=== PATIENT | male | born 1985 | race Caucasian/White ===

== ENCOUNTER 2021-04-01 02:55 | Emergency (ER) | payer OTHER ==
--- NOTE | 2021-04-01 02:56 | ED ---
Overdose HPI - General Stated Complaint: Overdose Time Seen by Provider: 04/01/21 02:56 Source: RN notes reviewed, old records reviewed Limitations: no limitations - History of Present Illness Initial Comments: This is a 35-year-old male to the ER for evaluation today. Patient presents today is evaluation by EMS for overdose. Patient had expected opiate overdose low he refuses to admit this. Patient has denial of any other drug or alcohol abuse. Patient prefer discharged home MD Complaint: accidental overdose -: hour(s) Intent: unwilling to say How Overdose Was Discovered: family/friend present at time Context: Intentional Overdose: drug/ETOH problems Context: Accidental Overdose: wanted to get high Treatments Prior to Arrival: none - Related Data Home Medications Medication Instructions Recorded Confirmed Ibuprofen [Motrin] 800 mg PO Q6HR PRN 02/06/14 02/06/14 Previous Rx's Medication Instructions Recorded Hydrocodone/Acetaminophen [[place] 1 each PO Q6HR PRN #30 tab 02/06/14 5-325] Penicillin V Potassium [Pen Vee K] 500 mg PO QID #40 tab 02/06/14 Allergies Allergy/AdvReac Type Severity Reaction Status Date / Time No Known Allergies Allergy Verified 04/01/21 03:07 Review of Systems ROS Statement: Those systems with pertinent positive or pertinent negative responses have been documented in the HPI. ROS Other: All systems not noted in ROS Statement are negative. Past Medical History Past Medical History: No Reported History History of Any Multi-Drug Resistant Organisms: None Reported Additional Past Surgical History / Comment(s): CADAVER C5-C6, SCREW IN C2. Past Psychological History: No Psychological Hx Reported Past Alcohol Use History: None Reported, Occasional Past Drug Use History: None Reported General Exam General appearance: alert, in no apparent distress Head exam: Present: atraumatic, normocephalic, normal inspection Eye exam: Present: normal appearance, PERRL, EOMI. Absent: scleral icterus, conjunctival injection, periorbital swelling ENT exam: Present: normal exam, mucous membranes moist Neck exam: Present: normal inspection. Absent: tenderness, meningismus, lymphadenopathy Respiratory exam: Present: normal lung sounds bilaterally. Absent: respiratory distress, wheezes, rales, rhonchi, stridor Cardiovascular Exam: Present: regular rate, normal rhythm, normal heart sounds. Absent: systolic murmur, diastolic murmur, rubs, gallop, clicks GI/Abdominal exam: Present: soft, normal bowel sounds. Absent: distended, tenderness, guarding, rebound, rigid Extremities exam: Present: normal inspection, full ROM, normal capillary refill. Absent: tenderness, pedal edema, joint swelling, calf tenderness Back exam: Present: normal inspection Neurological exam: Present: alert, oriented X3, CN II-XII intact Psychiatric exam: Present: normal affect, normal mood Skin exam: Present: warm, dry, intact, normal color. Absent: rash Course Vital Signs 04/01/21 02:55 Temperature 97.9 F Pulse Rate 90 Respiratory 18 Rate Blood Pressure 142/96 O2 Sat by Pulse 100 Oximetry - Reevaluation(s) Reevaluation #1: 04/01/21 Medical record is reviewed Patient symptoms are improved here in the ER Patient informed of results and questions answered Patient is in no distress Patient is okay for discharge Medical Decision Making - Medical Decision Making 35 male to the ER today for evaluation of acute overdose. Patient has resolution of overdose here in the ER, patient can be discharged home Disposition Clinical Impression: Accidental drug overdose, Poisoning by opiates and related narcotics, other Disposition: HOME SELF-CARE Condition: Fair Instructions (If sedation given, give patient instructions): Adult Overdose (ED) Is patient prescribed a controlled substance at d/c from ED?: No Referrals: None,Stated [Primary Care Provider] - 1-2 days
[2021-04-01 03:07] VITALS: BP 142/96; PULSE 90; RESP 18; TEMP 97.9
== END 2021-04-01 03:30 | disposition home or self-care (01) ==
LOC: EC 02:55
DX: T40.601A Poisoning by unspecified narcotics, accidental (unintentional), initial encounter (principal)
CPT/HCPCS: 99284

== ENCOUNTER 2022-03-27 00:27 | Emergency (ER) | payer OTHER ==
[2022-03-27 00:48] VITALS: BP 123/83; PULSE 90; RESP 16; TEMP 98.8
--- NOTE | 2022-03-27 01:23 | XR ---
EXAMINATION TYPE: XR wrist complete RT DATE OF EXAM: 03/27/2022 COMPARISON: NONE HISTORY: Fall. Pain TECHNIQUE: 3 view FINDINGS: There is lucent line projected over the distal radius near the radial ulnar joint that coul d be intra-articular fracture of the distal radius. There is cystic changes in the waist of the scaph oid bone. No carpal bone fracture seen. IMPRESSION: There is probably a longitudinal nondisplaced intra-articular fracture of the distal radi us.
--- NOTE | 2022-03-27 01:26 | XR ---
EXAMINATION TYPE: XR hand complete RT DATE OF EXAM: 03/27/2022 COMPARISON: NONE HISTORY: Fall. Pain TECHNIQUE: 3 views FINDINGS: The metacarpals are intact. There is some mild deformity of the third metacarpal shaft that could be an old healed fracture. There is some deformity at the fifth carpometacarpal joint consiste nt with an old fracture. There is cystic changes in the waist of the scaphoid bone that old trauma. T here is narrowing and spurring at the second MP joint. There is soft tissue swelling on the dorsum of the hand. IMPRESSION: Evidence of old trauma. No fracture seen of the hand. Subtle lucent line over the distal radius near the radial ulnar joint that could be longitudinal nondisplaced hairline fracture.
[2022-03-27] MEDS ORDERED: IBUPROFEN 400 MG TAB PO STA (01:48)
[2022-03-27] MEDS ORDERED: HYDROcodone/APAP 5-325MG 1 EACH TAB PO STA (01:48)
--- NOTE | 2022-03-27 02:03 | ED ---
Upper Extremity HPI - General Chief Complaint: Extremity Injury, Upper Stated Complaint: Right Hand Injury Time Seen by Provider: 03/27/22 01:24 Source: patient Mode of arrival: ambulatory Limitations: no limitations - History of Present Illness MD Complaint: Injury to:: right, wrist -: hour(s) Other Injuries: none Handedness: right Place: outdoors Improves With: none Worsens With: movement of extremity Context: fall, skateboard accident Associated Symptoms: denies other symptoms - Related Data Home Medications Medication Instructions Recorded Confirmed Ibuprofen [Motrin] 800 mg PO Q6HR PRN 02/06/14 02/06/14 Previous Rx's Medication Instructions Recorded Hydrocodone/Acetaminophen [[place] 1 each PO Q6HR PRN #30 tab 02/06/14 5-325] Penicillin V Potassium [Pen Vee K] 500 mg PO QID #40 tab 02/06/14 HYDROcodone/APAP 5-325MG [[place] 1 tab PO Q4HR PRN 3 Days #18 tab 03/27/22 5-325] Allergies Allergy/AdvReac Type Severity Reaction Status Date / Time No Known Allergies Allergy Verified 04/01/21 03:07 Review of Systems ROS Statement: Those systems with pertinent positive or pertinent negative responses have been documented in the HPI. ROS Other: All systems not noted in ROS Statement are negative. Constitutional: Denies: fever, weakness Musculoskeletal: Reports: as per HPI, joint swelling, arthralgia Skin: Denies: rash, lesions Neurological: Denies: headache, weakness, numbness Past Medical History Past Medical History: No Reported History History of Any Multi-Drug Resistant Organisms: None Reported Additional Past Surgical History / Comment(s): CADAVER C5-C6, SCREW IN C2. Past Psychological History: No Psychological Hx Reported Smoking Status: Current some day smoker Past Alcohol Use History: Occasional Past Drug Use History: Marijuana General Exam Limitations: no limitations General appearance: alert, in no apparent distress Head exam: Present: atraumatic, normocephalic Neck exam: Present: normal inspection, full ROM. Absent: tenderness Respiratory exam: Absent: chest wall tenderness Cardiovascular Exam: Present: regular rate, normal rhythm, normal heart sounds GI/Abdominal exam: Present: soft. Absent: tenderness Right Elbow exam: Present: normal inspection, full ROM. Absent: tenderness, swelling Forearm Wrist exam: Present: full ROM, tenderness, swelling. Absent: abrasion, laceration, ecchymosis, deformity, crepitus, dislocation Hand Wrist exam: Present: normal inspection, full ROM, tenderness. Absent: swelling, abrasion Neuro motor exam: Present: wrist extension intact, thumb opposition intact, thumb IP flexion intact, thumb adduction intact, fingers 2-5 abduction intact Vascular: Present: normal capillary refill. Absent: vascular compromise, pulse deficit radial art, pulse deficit ulnar art, pulse deficit brachial art Back exam: Absent: vertebral tenderness Neurological exam: Present: alert. Absent: motor sensory deficit Skin exam: Present: warm, dry, intact, normal color. Absent: rash Course Vital Signs 03/27/22 00:44 Temperature 98.8 F Pulse Rate 90 Respiratory 16 Rate Blood Pressure 123/83 O2 Sat by Pulse 98 Oximetry Disposition Clinical Impression: Wrist fracture, right Disposition: HOME SELF-CARE Condition: Good Instructions (If sedation given, give patient instructions): Wrist Injury (ED) Prescriptions: HYDROcodone/APAP 5-325MG [[place] 5-325] 1 tab PO Q4HR PRN 3 Days #18 tab PRN Reason: Pain Is patient prescribed a controlled substance at d/c from ED?: Yes Referrals: Ihsan Kinsey DO [Doctor of Osteopathic Medicine] - 1-2 days Rigo Kasper PAC [PHYSICIAN SE[employer]] - 1-2 days None,Stated [Primary Care Provider] - 1-2 days Rene Romero MD [Medical Doctor] - 1-2 days
== END 2022-03-27 02:21 | disposition home or self-care (01) ==
LOC: EC 00:27
DX: S62.91XA Unspecified fracture of right hand, initial encounter for closed fracture (principal); F17.200 Nicotine dependence, unspecified, uncomplicated; F12.90 Cannabis use, unspecified, uncomplicated; V00.131A Fall from skateboard, initial encounter
CPT/HCPCS: 99283